=== PATIENT | male | born 1985 | race Caucasian/White ===

== ENCOUNTER 2016-03-02 11:39 | Emergency (ER) | payer OTHER | END 2016-03-02 15:07 | disposition home or self-care (01) | LOC: D.ER 11:39 | DX: N34.2 Other urethritis (principal); N45.1 Epididymitis; F17.200 Nicotine dependence, unspecified, uncomplicated ==

== ENCOUNTER 2018-08-20 18:56 | Emergency (ER) | payer SELFPAY ==
[~2018-08-20] VITALS: Ht 177.8 cm; Wt 68.2 kg
[2018-08-20 19:00] VITALS: Ht 177.8 cm; Wt 68.2 kg
[2018-08-20] MEDS ORDERED: HYDROCODON-ACE1 EAC2 PO (20:01)
[2018-08-20] MEDS ORDERED: TORADOL10 MG PO (20:01)
[2018-08-20 20:45] VITALS: BP 130/75
== END 2018-08-20 20:45 | disposition home or self-care (01) ==
LOC: D.ER 18:56
DX: S43.102A Unspecified dislocation of left acromioclavicular joint, initial encounter (principal); V19.9XXA Pedal cyclist (driver) (passenger) injured in unspecified traffic accident, initial encounter; Y93.89 Activity, other specified; Y92.89 Other specified places as the place of occurrence of the external cause; H60.92 Unspecified otitis externa, left ear; M79.671 Pain in right foot

== ENCOUNTER 2019-01-07 00:14 | Emergency (ER) | payer OTHER ==
[~2019-01-07] VITALS: Ht 177.8 cm; Wt 72.6 kg
[~2019-01-07 00:14] MED LIST: HYDROCODON-ACE1 EAC2 PO; TORADOL10 MG PO
[2019-01-07 00:15] VITALS: Ht 177.8 cm; Wt 72.6 kg
[2019-01-07] MEDS ORDERED: IBUPROFEN800 MG PO (01:02)
[2019-01-07 01:17] VITALS: BP 126/71
== END 2019-01-07 01:17 | disposition home or self-care (01) ==
LOC: D.ER 00:14
DX: S93.401A Sprain of unspecified ligament of right ankle, initial encounter (principal); S99.911A Unspecified injury of right ankle, initial encounter; X58.XXXA Exposure to other specified factors, initial encounter; Y93.9 Activity, unspecified; Y92.9 Unspecified place or not applicable

== ENCOUNTER 2019-06-24 20:25 | Emergency (ER) | payer OTHER ==
[~2019-06-24] VITALS: Ht 175.3 cm; Wt 63.6 kg
[~2019-06-24 20:25] MED LIST changes: +IBUPROFEN800 MG PO
[2019-06-24 20:30] VITALS: Ht 175.3 cm; Wt 63.6 kg
[2019-06-24 21:05] LABS: BILIRUBIN NEGATIVE (NEGATIVE); GLUCOSE NEGATIVE (NEGATIVE); KETONE NEGATIVE (NEGATIVE); NITRITE NEGATIVE (NEGATIVE); SPECIFIC GRAVITY 1.015 (1.005-1.020); UROBILINOGEN NORMAL (NORMAL)
[2019-06-24 21:07] VITALS: BP 116/77
[2019-06-24 21:10] LABS: BACTERIA FEW /hpf (NEGATIVE); RED CELLS - URINE OCC /hpf (0-5); WHITE CELLS - URINE >50 /hpf (NEGATIVE)
== END 2019-06-24 21:07 | disposition home or self-care (01) ==
LOC: D.ER 20:25
PROVIDERS: Emergency Medicine
DX: Z20.2 Contact with and (suspected) exposure to infections with a predominantly sexual mode of transmission (principal); R30.0 Dysuria; R36.9 Urethral discharge, unspecified